=== PATIENT | female | born 1935 | race Caucasian/White ===

== ENCOUNTER → 2018-05-29 | Day surgery (SDC) | payer MEDICARE, BC ==
[~2018-05-29] MED LIST: ATEN-60 PO; BENA40TA7 PO; DIGO0.2570 PO; FUROSEMIDE 20 MG/2 ML VIAL ONE; LOVA40TA72 PO; METF-370 PO; MIDAZOLAM HCL 1MG/1ML-2 ML VIAL ONE; MORPHINE SULFATE 4 MG/ML SYR/VIAL IV PRN; ONDANSETRON HCL 4 MG/2 ML VIAL IV ONE; ONDANSETRON HCL 4 MG/2 ML VIAL IV PRN; PROPOFOL 10 MG/ML 20 ML IV ONE; WARF2.5T39 PO; WARF5TAB71 PO; diphenhdrAMINE HCL 50 MG/1 ML VL IM ONE; diphenhdrAMINE HCL 50 MG/1 ML VL IV ONE; diphenhdrAMINE HCL 50 MG/1 ML VL ONE; ePHEDrine SULFATE 50 MG/ML AMP IV PRN; fentaNYL CITRATE 100 MCG/2 ML VL ONE; hydrALAZINE HCL 20 MG/ML VL IV PRN
[2018-05-29 07:24] LABS: Basophils # (auto) 0 uL; Basophils % (auto) 0.3 % (0.0-2.0); Eosinophils # (auto) 0.1 uL; Eosinophils % (auto) 0.7 % (0.0-7.0); Lymphocytes # (auto) 0.7 uL; Mean Corpuscular Hemoglobin 28.8 pg (28.0-32.0); Mean Corpuscular Hgb Conc. 33.3 g/dL (32.0-36.0); Mean Corpuscular Volume 86.5 fL (80.0-100.0); Monocytes # (auto) 0.5 uL; Monocytes % (auto) 5.1 % (0.0-12.0); Neutrophils # (auto) 7.7 uL; Neutrophils % (auto) 85.9 % (37.0-80.0); Platelet Count (auto) 394 10^3/uL (140-450); Red Blood Cells 3.47 10^6/uL (4.0-5.20); Red Cell Distribution Width 15.4 % (11.8-14.3)
[2018-05-29 07:44] LABS: BUN/Creatinine Ratio 25.2; Calcium 8.9 mg/dL (8.5-10.1); Potassium 4.3 mmol/L (3.5-5.1)
[2018-05-29 07:45] LABS: Partial Thromboplastin Time 55.8 sec (23.78-33.04); Prothrombin Time 51.4 sec (9.27-12.13)
[2018-05-29 07:47] LABS: INR 5.28 (0.9-1.15)
[2018-05-29 10:39] LABS: Partial Thromboplastin Time 59.5 sec (23.78-33.04)
[2018-05-29 10:42] LABS: INR 5.02 (0.9-1.15)
[2018-05-29 14:13] LABS: INR 1.88 (0.9-1.15); Partial Thromboplastin Time 40.6 sec (23.78-33.04); Prothrombin Time 19.4 sec (9.27-12.13)
[2018-05-29 17:00] VITALS: BP 128/57
== END | disposition home or self-care (01) ==
LOC: SUR 06:00
PROVIDERS: ATTEND Obstetrics & Gynecology
DX: N93.9 Abnormal uterine and vaginal bleeding, unspecified (principal); N89.8 Other specified noninflammatory disorders of vagina; I10 Essential (primary) hypertension; E78.5 Hyperlipidemia, unspecified; Z82.49 Family history of ischemic heart disease and other diseases of the circulatory system; Z80.3 Family history of malignant neoplasm of breast; Z80.9 Family history of malignant neoplasm, unspecified; Z79.84 Long term (current) use of oral hypoglycemic drugs; Z79.899 Other long term (current) drug therapy; Z90.710 Acquired absence of both cervix and uterus; Z96.652 Presence of left artificial knee joint; Z98.890 Other specified postprocedural states
CPT/HCPCS: 11422; 36415; 52000; 71045; 80048; 82962; 85025; 85610; 85730; 86850; 86900; 86901; J1200; J1940; J2250; J2704; J3010; P9017